=== PATIENT | female | born 1980 | race Two or more races ===

== ENCOUNTER 2023-04-29 10:25 | Emergency (ER) | payer MEDICAID ==
[~2023-04-29] VITALS: Ht 172.7 cm; Wt 73.2 kg
[2023-04-29 12:44] VITALS: BP 100/47; PULSE 73; RESP 18; TEMP 98.1; O2SAT 98
[2023-04-29] MEDS ORDERED: IBUP-1454 PO (12:57)
[2023-04-29] MEDS ORDERED: KETOROLAC TROMETH 30 MG/ML 1ML VIAL IM ONE (13:00)
== END 2023-04-29 13:42 | disposition home or self-care (01) ==
LOC: ER 10:25
DX: M65.4 Radial styloid tenosynovitis [de Quervain] (principal); M25.531 Pain in right wrist; Z79.1 Long term (current) use of non-steroidal anti-inflammatories (NSAID)
CPT/HCPCS: 29125; 96372; 99283; J1885